=== PATIENT | female | born 1980 | race Caucasian/White ===

== ENCOUNTER 2017-03-25 13:44 | Emergency (ER) | payer SELFPAY ==
--- NOTE | 2017-03-25 14:02 | ED Physician Documentation ---
Seizure - HISTORIAN Historian: patient, other - HPI Chief Complaint: Seizure Timing/Onset/Duration: single episode Last known Well Date: 03/25/17 Last Known Well Time: 13:47 Last known Well Code/Unknown Code: Known Witnessed By: bystander Preceding Symptoms: denies: fever, chills Character of Seizure(s): lost consciousness Postictal Symptoms: confusion Location of Injury: head (abrasion posterior occiput) Further Comments: yes - ROS NEURO/PSYCH: denies: headache EYES/ENT: none GI/: denies: adominal pain, nausea, vomiting - PAST HX Previous seizure/seizure disorder: none Etiology: etiology (unknown) Other History: none Surgeries/Procedures: other (hysterectomy) Immunizations: tetanus Allergies/Adverse Reactions: Allergies Allergy/AdvReac Type Severity Reaction Status Date / Time No Known Allergies Allergy Verified 03/25/17 14:01 Home Medications: Ambulatory Orders Medication Instructions Recorded Alprazolam [Xanax] 1 mg PO QID PRN u2 01/13/17 Escitalopram Oxalate [Lexapro] 20 mg PO DAILY u2 01/13/17 Naratriptan HCl [Naratriptan] 2.5 mg PO DAILY PRN u2 01/13/17 Tramadol HCl [Ultram] 50 mg PO DAILY PRN u2 01/13/17 Zolpidem Tartrate [Ambien] 10 mg PO HS PRN u2 01/13/17 - SOCIAL HX Smoking History: non-smoker Alcohol Use: none Drug Use: none - FAMILY HX Family History: none - VITAL SIGNS Vital Signs: Vital Signs Temp Pulse Resp BP Pulse Ox 79 16 101/59 97 03/25/17 16:45 03/25/17 16:45 03/25/17 16:45 03/25/17 16:45 - REVIEWED ASSESSMENTS Nursing Assessment Reviewed: Yes Vitals Reviewed: Yes Progress - Progress Progress: 14:32 Patient is resting quietly, no complaints. ED Results Lab/Radiology - Lab Results Lab Results: Lab Results 03/25/17 03/25/17 14:10 14:10 WBC 4.60 K/ul K/ul (4.00-12.00) RBC 4.43 M/ul M/ul (3.90-5.20) Hgb 14.0 g/dL g/dL (12.0-16.0) Hct 41.2 % % (34.5-46.5) MCV 93.0 fl fl (80.0-100.0) MCH 31.7 pg pg (28.0-34.0) MCHC 34.1 g/dL g/dL (30.0-36.0) RDW 11.9 % % (11.3-14.3) Plt Count 264 K/mm3 K/mm3 (130-400) Neut % (Auto) 39.4 % % (39.0-79.0) Lymph % (Auto) 51.9 % H % (16.0-50.0) Hinds % (Auto) 3.6 % % (0.0-11.0) Eos % (Auto) 1.4 % % (0.0-6.8) Baso % (Auto) 1.3 (0.0-1.5) Neut # (Auto) 1.8 # k/uL # k/uL (1.4-7.7) Lymph # (Auto) 2.4 # k/uL # k/uL (0.6-4.0) Hinds # (Auto) 0.2 # k/uL # k/uL (0.0-0.9) Eos # (Auto) 0.1 # k/uL # k/uL (0.0-0.6) Baso # (Auto) 0.1 # k/uL # k/uL (0.0-0.5) Reactive Lymphs % 2.3 % % (0.0-5.0) Reactive Lymphs # 0.1 # k/uL # k/uL (0.0-0.8) Sodium 136 mmol/L mmol/L (136-145) Potassium 3.6 mmol/L mmol/L (3.5-5.0) Chloride 96 mmol/L L mmol/L (98-110) Carbon Dioxide 29 mmol/L mmol/L (20-32) BUN 12 mg/dL mg/dL (10-26) Creatinine 0.8 mg/dL mg/dL (0.4-1.5) Estimated Creat Clear 105 Est GFR ( Amer) > 60 (60 - ) Est GFR (Non-Af Amer) > 60 (60 - ) Glucose 108 mg/dL H mg/dL (70-99) Calcium 10.2 mg/dL mg/dL (8.5-10.5) Total Bilirubin 0.7 mg/dL mg/dL (0.2-1.2) AST 25 U/L U/L (0-41) ALT 23 U/L U/L (0-45) Alkaline Phosphatase 50 U/L U/L (46-116) Total Protein 8.1 g/dL g/dL (6.0-8.5) Albumin 5.1 g/dL g/dL (3.0-5.5) - Radiology Radiology Impressions: Examination: CT head without contrast History: Seizure. Fall Comparison exam: None available Technique: Noncontrast head CT protocol. Findings: Ventricles and sulci are appropriate for patient age. Cerebrocerebellar parenchyma demonstrates normal attenuation. No evidence for parenchymal hemorrhage. No evidence for mass or mass effect. No midline shift. No extra axial fluid collections. Partial visualization of the paranasal sinuses , mastoid air cells, orbits, and skull without gross irregularity. Large posterior right scalp hematoma. Impression: No acute parenchymal process. No hemorrhage. Large posterior right scalp hematoma. - Orders Orders: ED Orders Category Date Time Status Place IV Lock 1T Care 03/25/17 14:[address] BRAIN W/O CONTRAST Stat Exams 03/25/17 Completed CBC/PLATELET/DIFF Routine Lab 03/25/17 14:10 Completed CMP Routine Lab 03/25/17 14:10 Completed Seizure Physical Exam - Physical Exam General Appearance: no acute distress, alert Altered Mental Status Higher Functions: alert, oriented x3, no evidence of acute CVA, mood/affect nml, eyes open, withdraws, other (neuorsensory andmotor intact, DTR 2/4, moves all extremities normally, CN 2-12 intact.) EENT: nml eye inspection, laceration (right parietal area) Neck/Back: normal inspection, thyroid normal, supple Respiratory: no resp. distress, breath sounds nml, no evidence of rib injury CVS: heart sounds normal. No: reg rate & rhythm (tachycardia) Abdomen: non-tender Skin: warm/dry, normal color Extremities: normal range of motion Observed Seizure Activity in ED: generalized Seizure Duration: 90 (seconds) - Nexus Criteria Neg Nexus Criteria: Nexus criteria neg Discharge Clincal Impression: Seizure Referrals: Primary Doctor,No [Primary Care Provider] - 2 Days Additional Instructions: Make sure you drink a lot of fluids, get 8 hours sleep, and try to deal with your stress. Stop taking Lyrica and lexipro. Call your primary care provider about further direction about your medication for fibromyalgia and if they feel any further work-up is needed for seizures. Home Medications: Ambulatory Orders Alprazolam [Xanax] 1 mg PO QID PRN u2 01/13/17 Escitalopram Oxalate [Lexapro] 20 mg PO DAILY u2 01/13/17 Naratriptan HCl [Naratriptan] 2.5 mg PO DAILY PRN u2 01/13/17 Tramadol HCl [Ultram] 50 mg PO DAILY PRN u2 01/13/17 Zolpidem Tartrate [Ambien] 10 mg PO HS PRN u2 01/13/17 Condition: Stable Disposition: 01 HOME, SELF-CARE Decision to Admit: NO Date of Decison to Admit: 03/25/17 Decision Time: 16:00
[2017-03-25 14:22] LABS: BASOPHILS % 1.3 (0.0-1.5); EOSINOPHILS % 1.4 % (0.0-6.8); MEAN CORPUSCULAR HEMOGLOBIN 31.7 pg (28.0-34.0); MONOCYTES % 3.6 % (0.0-11.0); NEUTROPHILS # 1.8 # k/uL (1.4-7.7)
[2017-03-25 14:33] LABS: eGFR (African) > 60; eGFR (Non-African) > 60
--- NOTE | 2017-03-25 15:28 | Diagnostic Imaging Report ---
LIDIA NAJERA [facility] [address] [facility] [address] [place], [place]. [address] Report Submission Date: Mar 25, 2017 3:25:48 PM CDT Patient Study Name: ABIODUN RIOS Date: Mar 25, 2017 3:05:59 PM CDT Modality Type: CT\SR Gender: F Description: CT BRAIN W/O CONTRAST : 78 Institution: [facility] Physician: LIDIA NAJERA Examination: CT head without contrast History: Seizure. Fall Comparison exam: None available Technique: Noncontrast head CT protocol. Findings: Ventricles and sulci are appropriate for patient age. Cerebrocerebellar parenchyma demonstrates normal attenuation. No evidence for parenchymal hemorrhage. No evidence for mass or mass effect. No midline shift. No extra axial fluid collections. Partial visualization of the paranasal sinuses , mastoid air cells, orbits, and skull without gross irregularity. Large posterior right scalp hematoma. Impression: No acute parenchymal process. No hemorrhage. Large posterior right scalp hematoma. Electronically signed on Mar 25, 2017 3:25:48 PM CDT by: Paulino Santos [facility] CENTERAlem
[2017-03-25 23:00] VITALS: BP 101/59
== END 2017-03-25 16:45 | disposition home or self-care (01) ==
LOC: ED 13:44
DX: G40.409 Other generalized epilepsy and epileptic syndromes, not intractable, without status epilepticus (principal)
CPT/HCPCS: 70450; 80053; 85025; 99283; S1016

== ENCOUNTER 2017-10-31 15:43 | Outpatient (CLI) | payer BC ==
[2017-10-31 15:58] LABS: BASOPHILS % 0.4 (0.0-1.5); EOSINOPHILS % 1.6 % (0.0-6.8); MEAN CORPUSCULAR HEMOGLOBIN 30.9 pg (28.0-34.0); MEAN CORPUSCULAR VOLUME 92.4 fl (80.0-100.0); MONOCYTES % 4.2 % (0.0-11.0); NEUTROPHILS # 2.4 # k/uL (1.4-7.7)
== END 2017-10-31 15:44 ==
LOC: LAB 15:43
PROVIDERS: ATTEND Family Medicine
DX: E83.110 Hereditary hemochromatosis (principal)
CPT/HCPCS: 36415; 85025

== ENCOUNTER 2019-05-10 11:55 | Outpatient (CLI) | payer OTHER ==
--- NOTE | 2019-05-16 08:16 | OP Clinic Progress Note ---
DATE OF VISIT: 05/10/2019 SUBJECTIVE: Umu Gonsalez is a 38-year-old female presenting to clinic today for an initial visit with me for bilateral heel pain. The patient has had pain for several months now and states that the pain is worse in the right foot. She admits that the pain is worst first step out of bed in the morning as well as after sitting and resting, when she stands up again it is quite painful. She has tried plantar fasciitis inserts from [employer] as well as some sort of ankle sleeves as well as a night splint from [employer] that she tried to use at night but did not feel it helped at all. She also tries Aleve and Tylenol which takes the edge off the pain. She does not admit to any other issues at this time. OBJECTIVE: Vitals: Temperature 98.0 degrees Fahrenheit, heart rate 70, respiration rate 14, blood pressure 118/68. O2 saturation is 98% on room air. Vascular: 2+ DP and PT pulses, bilaterally. Capillary refill time is less than 3 seconds to the toes bilaterally. There is no edema noted bilaterally. Dermatologic: There are no open lesions, ecchymosis, erythema or any abnormal skin lesions or discolorations noted bilateral feet. Musculoskeletal: Significant pain on palpation is noted at the plantar medial calcaneal tubercle area of bilateral heels, right much more than the left. The pain extends slightly into the medial band of the plantar fascia of the arch of bilateral feet. There is no pain on palpation on the lateral band area bilaterally. There are no other gross abnormalities noted except for notable dorsiflexion to approximately 0 degrees at the ankle with the knee extended bilaterally improved to approximately 10 degrees with dorsiflexion at the ankle with the knee flexed bilaterally. Neurologic: Light touch sensation is intact to the toes bilaterally. ASSESSMENT AND PLAN: 1. Plantar fasciitis, bilateral feet. 2. Gastrocnemius equinus, bilateral lower extremities. PROCEDURE #1: Risks and benefits were discussed with the patient that include but are not limited to bleeding, infection and steroid flare for a right plantar fascia steroid injection. The patient agreed, both by written and verbal consent to go forward with this procedure at this time. An alcohol swab was utilized to cleanse the right plantar medial heel area. An injection consisting of 1 cc of 2% lidocaine plain, 1 cc of 0.5% Marcaine plain, 0.5 cc of dexamethasone 4 mg/mL and 0.5 cc of Kenalog 40 mg/mL was injected into the plantar fascia. Mild bleeding was controlled with pressure and a Band-Aid was applied. The patient will return to clinic in the [facility] in approximately three weeks or outpatient clinic for potential steroid injection in the left heel if it seems to be worsening. The patient wanted it to be done in the right heel today because of how severe the pain is. Discussion and demonstration of four times a day stretching exercises were given as well as encouragement to take 600 to 800 mg of ibuprofen three times a day for 7 to 10 days as well as a frozen water bottle was discussed. The patient was also given paperwork for [employer] inserts that she can obtain and was encouraged to use them at all times when weightbearing. She has no other questions and we will see her in three weeks for follow up. Mandie BoldenP.M.(Dictated/not signed) /[employer] [id number] /mab MTDD
== END 2019-05-10 12:25 ==
LOC: POD 11:55
PROVIDERS: ATTEND Podiatrist Foot & Ankle Surgery
DX: M72.2 Plantar fascial fibromatosis (principal); M21.6X1 Other acquired deformities of right foot; M21.6X2 Other acquired deformities of left foot
CPT/HCPCS: 20550; 99202; A4554; J1100; J2001; J3301; J3490